=== PATIENT | female | born 1965 | race Caucasian/White ===

== ENCOUNTER 2018-06-04 08:43 | Outpatient (CLI) | payer OTHER | END 2018-06-04 16:01 | disposition home or self-care (01) | LOC: SONOGRAMA 08:43 | DX: R10.2 Pelvic and perineal pain (principal) ==

== ENCOUNTER → 2018-06-06 | Outpatient (CLI) | payer OTHER | END | disposition home or self-care (01) | LOC: TOM 08:35 | DX: R10.2 Pelvic and perineal pain (principal) ==

== ENCOUNTER → 2021-01-09 15:00 | Outpatient (CLI) | payer OTHER | END | disposition home or self-care (01) | LOC: PPH VACUNA 15:00 | DX: Z23 Encounter for immunization (principal) ==

== ENCOUNTER 2021-04-05 07:52 | Emergency (ER) | payer OTHER ==
[~2021-04-05] VITALS: Ht 160 cm; Wt 54.4 kg
[2021-04-05] MEDS ORDERED: ZITHROMAX200 MG PO (11:55)
[2021-04-05] MEDS ORDERED: LEVSIN/SL0.125 MG SL (11:55)
[2021-04-05] MEDS ORDERED: PEPCID40 MG PO (11:55)
== END 2021-04-05 13:50 | disposition home or self-care (01) ==
LOC: ER 07:52
DX: R10.11 Right upper quadrant pain (principal)

== ENCOUNTER 2021-09-28 09:00 | Outpatient (CLI) | payer OTHER ==
[~2021-09-28 09:00] MED LIST: LEVSIN/SL0.125 MG SL; PEPCID40 MG PO; ZITHROMAX200 MG PO
== END 2021-09-28 09:15 | disposition home or self-care (01) ==
LOC: PPH VACUNA 09:00
PROVIDERS: ATTEND Emergency Medicine Pediatric Emergency Medicine
DX: Z23 Encounter for immunization (principal)